=== PATIENT | male | born 2005 | race Caucasian/White ===

== ENCOUNTER 2024-07-01 13:32 | Emergency (ER) | payer OTHER, SELFPAY ==
[2024-07-01 13:37] VITALS: BP 102/64; PULSE 72; RESP 18; TEMP 36.7; O2SAT 98; BMI 21.7
--- NOTE | 2024-07-01 13:45 | W.ED.EAR ---
HPI - Ear Problem General: Chief complaint: Ear Stated complaint: ear ache Time Seen by Provider: 07/01/24 13:35 Source: patient Mode of arrival: ambulatory Limitations: no limitations History of Present Illness: Patient is a 18-year-old male who presents to ED today with complaint of a right earache. Symptoms have been present over the past 2 weeks or so. Patient has been seen twice at walk-in clinics for the ear pain. He states he is taking amoxicillin and cefdinir. He has not had any drainage from the ear. No hearing loss or tinnitus. No dizziness. He is not having any headache or fevers. MD Complaint: ear pain Location: right ear Duration: constant Severity: moderate Relieving factors: nothing Exacerbating factors: nothing Discharge from ear: no Associated symptoms: Reports ear or mastoid pain; Denies fever(s), headache(s) or tinnitus Treatment prior to arrival: other (abx) Related Data Previous Rx's Medication Instructions Recorded amoxicillin 500 mg capsule 500 mg PO TID 7 days #21 caps 06/28/24 cefdinir 300 mg capsule 300 mg PO BID 10 days #20 caps 06/30/24 Allergies Allergy/AdvReac Type Severity Reaction Status Date / Time No Known Allergies Allergy Verified 07/01/24 13:40 Review of Systems Const: Denies: fever(s) ENMT: Reports: ear or mastoid pain and change in hearing (muffled R ear); Denies: ear discharge, tinnitus, disequilibrium, nasal discharge, nasal congestion or sinus pain Resp: Denies: productive cough, non-productive cough or chest congestion GI: Denies: nausea or vomiting Neuro: Denies: headache(s) PFS ED PFSH: Social History Smoking and tobacco/nicotine status: tobacco/nicotine user, details unknown Physical Exam Const: COMMON NORMALS: no acute distress, average body habitus, patient oriented x3, no limitations, healthy appearing, alert and well nourished GENERAL APPEARANCE: cooperative ORIENTATION/CONSCIOUSNESS: Yes awake, Yes oriented to person, Yes oriented to place and Yes oriented to time HENMT: COMMON NORMALS: normocephalic, atraumatic, hearing grossly normal bilaterally, external ears normal and EAC's normal HEAD & SCALP: normal to inspection, normocephalic and atraumatic FACE & SINUS: normal facial exam, sinuses nontender and face symmetric EXTERNAL EAR: Yes external ears normal EXTERNAL AUDITORY CANAL: EAC's normal TYMPANIC MEMBRANE: TM abnormal TM laterality: right Details: dull, effusion and loss of landmarks Neck/C-Spine: COMMON NORMALS: no lymphadenopathy Neuro: COMMON NORMALS: patient oriented x3 SENSORIUM/ORIENTATION: Yes alert, Yes oriented to person, Yes oriented to place and Yes oriented to time Course Vital Signs: Vital signs: Vital Signs Temperature 98.0 F 07/01/24 13:37 Pulse Rate 72 07/01/24 13:37 Respiratory Rate 18 07/01/24 13:37 Blood Pressure 102/64 07/01/24 13:37 Pulse Oximetry 98 07/01/24 13:37 Oxygen Delivery Me thod Room Air 07/01/24 13:37 MDM - Ear Medical Decision Making Patient has a right serous otitis. He is already on antibiotic therapy. We discussed possible other conservative therapies at home including antihistamines, intranasal corticosteroids, and auto inflation although there is lacking evidence of all of the above that these actually help. He can follow up with PCP or ENT in 2 weeks if symptoms persist. Medical Records I reviewed the patient's medical records. No radiology studies performed this visit Discharge Plan Discharge Patient Disposition: Home Clinical Impression: Right acute serous otitis media Qualifiers: Recurrence: non-recurrent Qualified Code(s): H65.01 - Acute serous otitis media, right ear Condition: Stable Prescriptions: No Action amoxicillin 500 mg capsule 500 mg PO TID 7 Days Qty: 21 0RF cefdinir 300 mg capsule 300 mg PO BID 10 Days Qty: 20 0RF Discharge Orders: Discharge ED (Routine); Ordered 07/01/24 Ordered By: Alena Jiang Referrals: Darshan Charles Jr, MD [Family Provider] - Patient Instructions: Fluid In The Ear (Serous Otitis Media) (ED) Coding Level of Care Code ED Replenishment Merchandising Associate for Sara Crespo
== END 2024-07-01 14:10 | disposition home or self-care (01) ==
PROVIDERS: Emergency Provider Physician Assistant; Family Provider Pediatrics Adolescent Medicine
DX: H65.01 Acute serous otitis media, right ear (principal)
CPT/HCPCS: 99282